=== PATIENT | female | born 1995 | race Caucasian/White ===

== ENCOUNTER 2017-05-06 16:00 | Emergency (ER) | payer OTHER ==
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
[2017-05-06] MEDS ORDERED: MOTRIN PO ONE (22:34)
[2017-05-06 23:15] VITALS: BP 105/71
== END 2017-05-06 23:15 | disposition home or self-care (01) ==
LOC: ED 16:00
DX: S13.4XXA Sprain of ligaments of cervical spine, initial encounter (principal); S39.012A Strain of muscle, fascia and tendon of lower back, initial encounter; F17.200 Nicotine dependence, unspecified, uncomplicated; F12.10 Cannabis abuse, uncomplicated; V49.59XA Passenger injured in collision with other motor vehicles in traffic accident, initial encounter; Y92.488 Other paved roadways as the place of occurrence of the external cause; Y93.89 Activity, other specified; Y99.8 Other external cause status
CPT/HCPCS: 99282